=== PATIENT | female | born 1960 | race Caucasian/White ===

== ENCOUNTER 2018-08-26 10:49 | Outpatient (CLI) | payer OTHER | END 2018-08-26 10:50 | disposition home or self-care (01) | LOC: BICMAMMO 10:49 | PROVIDERS: ATTEND Nurse Practitioner Family | DX: Z12.31 Encounter for screening mammogram for malignant neoplasm of breast (principal); Z80.3 Family history of malignant neoplasm of breast; Z85.43 Personal history of malignant neoplasm of ovary | CPT/HCPCS: 77063; 77067 ==

== ENCOUNTER 2019-12-01 11:09 | Outpatient (CLI) | payer OTHER ==
--- NOTE | 2019-12-01 11:48 | RAD ---
EXAM: Chest PA and lateral: HISTORY: Dyspnea COMPARISON: 06/20/2019 FINDINGS: Heart: Normal cardiac silhouette Aorta: Unremarkable Pulmonary vessels: Normal Costophrenic angles: Costophrenic angles are clear. Lungs: No consolidation or masses. Pneumothorax: No pneumothorax Osseous structures: No osseous abnormalities IMPRESSION: No acute cardiopulmonary process.
== END 2019-12-01 11:10 | disposition home or self-care (01) ==
LOC: RAD 11:09
PROVIDERS: ATTEND Internal Medicine Critical Care Medicine
DX: R06.00 Dyspnea, unspecified (principal)
CPT/HCPCS: 71046

== ENCOUNTER 2019-12-03 14:24 | Emergency (ER) | payer OTHER ==
--- NOTE | 2019-12-03 16:04 | ULT ---
ULTRASOUND ABDOMEN COMPLETE: DATE: 12/03/2019 HISTORY: 59-year-old female with hepatitis. FINDINGS: Liver:Echogenicity within normal limits. Echotexture questionably minimally coarse. Gallbladder:Surgically absent Common duct:5 mm Spleen:No splenomegaly Pancreas:Nonspecific sonographic appearance Kidneys:No hydronephrosis Abdominal aorta:No aneurysm Inferior vena cava:Poorly visualized. Free fluid: None visualized in upper quadrants. IMPRESSION: Status post cholecystectomy.
[2019-12-03 16:17] LABS: ALT (SGPT) 161 U/L (8-55); AST (SGOT) 96 U/L (5-34); Albumin 4.3 g/dL (3.5-5.0); Alkaline Phosphatase 201 U/L (40-110); Anion Gap 17 mmol/L (10-20); BUN (Urea Nitrogen) 17 mg/dL (9.8-20.1); Bilirubin, Total 0.4 mg/dL (0.2-1.2); Calc. Creatinine Clearance 0 mL/min (70-130); Calcium 9.2 mg/dL (7.8-10.44); Carbon Dioxide 26 mmol/L (22-29); Chloride 99 mmol/L (98-107); Estimated GFR-MDRD 49; Globulin 3.3 g/dL (2.4-3.5); Glucose 108 mg/dL (70-105); Potassium 3.8 mmol/L (3.5-5.1); Protein, Total 7.6 g/dL (6.0-8.3); Sodium 138 mmol/L (136-145)
[2019-12-03 17:29] LABS: HBCM Index 0.16 S/CO (0-0.79); HBSAg Index 0.16 S/CO (0-0.99); Hep A IgM AB Non-Reactive (NonReactive); Hep A IgM S/CO 0.19 S/CO (0-0.79); Hep B Surf Ag Non-Reactive S/CO (NonReactive); Hep C IgG Ab Non-Reactive (NonReactive); Hep C Index 0.11 S/CO (0-0.79); Hepatitis B Core IgM Abs Non-Reactive (NonReactive)
--- NOTE | 2019-12-05 15:10 | EKG ---
Test Reason : Blood Pressure : / mmHG Vent. Rate : 089 BPM Atrial Rate : 089 BPM P-R Int : 138 ms QRS Dur : 132 ms QT Int : 394 ms P-R-T Axes : 009 007 040 degrees QTc Int : 479 ms Normal sinus rhythm Left bundle branch block Abnormal ECG Confirmed by CHAIM ESCOBAR, BRAEDEN Deal ([id number]), editor & co founder LOUIS COKER ([id number]) on 12/05/2019 3:09:35 PM Referred By: Confirmed By:BRAEDEN RUCKER MD
== END 2019-12-03 18:00 | disposition home or self-care (01) ==
LOC: ERS 14:24
DX: R74.8 Abnormal levels of other serum enzymes (principal); I47.1 Supraventricular tachycardia; I25.10 Atherosclerotic heart disease of native coronary artery without angina pectoris; I44.7 Left bundle-branch block, unspecified; K21.9 Gastro-esophageal reflux disease without esophagitis
CPT/HCPCS: 36415; 80074; 93005; 93975; 94760

== ENCOUNTER 2021-11-01 08:56 | Outpatient (CLI) | payer OTHER | END 2021-11-01 08:57 | disposition home or self-care (01) | LOC: BICMAMMO 08:56 | PROVIDERS: ATTEND Family Medicine | DX: Z12.31 Encounter for screening mammogram for malignant neoplasm of breast (principal); Z80.3 Family history of malignant neoplasm of breast | CPT/HCPCS: 77067 ==

== ENCOUNTER 2022-01-04 08:55 | Outpatient (CLI) | payer OTHER | END 2022-01-04 08:56 | disposition home or self-care (01) | LOC: LABBT 08:55 | PROVIDERS: ATTEND Internal Medicine | DX: Z80.0 Family history of malignant neoplasm of digestive organs (principal); Z20.822 Contact with and (suspected) exposure to COVID-19 | CPT/HCPCS: U0003; U0005 ==

== ENCOUNTER 2022-01-09 05:55 | Day surgery (SDC) | payer OTHER ==
[2022-01-04 13:08] VITALS: BMI 36.9
== END 2022-01-09 09:13 | disposition home or self-care (01) ==
LOC: SDC 05:55
PROVIDERS: ATTEND Internal Medicine
PROC: 0DBK8ZZ Excision of Ascending Colon, Via Natural or Artificial Opening Endoscopic (ICD-10-PCS; principal; 2022-01-09)
PROC: 0DBL8ZZ Excision of Transverse Colon, Via Natural or Artificial Opening Endoscopic (ICD-10-PCS; principal; 2022-01-09)
PROC: 0DBM8ZZ Excision of Descending Colon, Via Natural or Artificial Opening Endoscopic (ICD-10-PCS; principal; 2022-01-09)
DX: Z12.11 Encounter for screening for malignant neoplasm of colon (principal); D12.2 Benign neoplasm of ascending colon; D12.3 Benign neoplasm of transverse colon; D12.4 Benign neoplasm of descending colon; Z80.0 Family history of malignant neoplasm of digestive organs; Z79.899 Other long term (current) drug therapy; Z88.0 Allergy status to penicillin; Z88.1 Allergy status to other antibiotic agents; Z88.2 Allergy status to sulfonamides
CPT/HCPCS: 88305